=== PATIENT | male | born 1990 | race Caucasian/White ===

== ENCOUNTER 2021-01-02 14:21 | Emergency (ER) | payer OTHER ==
[~2021-01-02] VITALS: Ht 182.9 cm; Wt 100.0 kg
[2021-01-02 14:38] VITALS: TEMP 99
[2021-01-02] MEDS ORDERED: AMOXICILLIN 8751 TAB PO (16:53)
[2021-01-02 17:13] VITALS: BP 132/70; PULSE 87
== END 2021-01-02 17:13 | disposition home or self-care (01) ==
LOC: COL.ER 14:21
DX: S01.551A Open bite of lip, initial encounter (principal); F17.290 Nicotine dependence, other tobacco product, uncomplicated; W54.0XXA Bitten by dog, initial encounter

== ENCOUNTER → 2021-01-09 | Outpatient (CLI) | payer SELFPAY ==
[~2021-01-09] MED LIST: AMOXICILLIN 8751 TAB PO
[2021-01-09 18:33] VITALS: BP 133/64; PULSE 87; TEMP 98.8
== END ==
LOC: COL.ER 18:29
DX: Z48.02 Encounter for removal of sutures (principal)